=== PATIENT | female | born 1975 | race Caucasian/White ===

== ENCOUNTER 2017-06-26 16:03 | Observation (INO) | payer OTHER ==
--- NOTE | 2017-06-26 16:15 | CPEKG ---
Heart Rate: 84 RR Interval: 714 P-R Interval: 148 QRSD Interval: 100 QT Interval: 380 QTC Interval: 450 P [place]: 39 QRS [place]: -14 T Wave [place]: 24 EKG Severity - NORMAL ECG - EKG Impression: SINUS RHYTHM Electronically Signed By: Cecil Reese 26-Jun-2017 22:28:44
--- NOTE | 2017-06-26 16:15 | CPEKG ---
Heart Rate: 84 RR Interval: 714 P-R Interval: 148 QRSD Interval: 100 QT Interval: 380 QTC Interval: 450 P [place]: 39 QRS [place]: -14 T Wave [place]: 24 EKG Severity - NORMAL ECG - EKG Impression: SINUS RHYTHM Electronically Signed By: Cecil Reese 26-Jun-2017 22:28:44
[2017-06-26 16:39] LABS: PLATELET COUNT 334 10^3/uL (150-400)
--- NOTE | 2017-06-26 16:59 | EDPHY ---
H & P Stated Complaint: Pt. states aprox 1300 today left ant cp with dizziness/ lightheadedness Time Seen by Provider: 06/26/17 16:39 HPI/ROS: Chief Complaint: Chest pain, lightheaded HPI: 41-year-old woman was at work in office today when she had onset of some lightheadedness and then developed some discomfort in the left side of her upper chest. At worst was a 4/10. Now 2/10. Symptoms began about 1 this afternoon. No recent illness but multiple coworkers have had upper respiratory type symptoms. She has not had any cough or shortness of breath. No palpitations. No leg pain or swelling. No periods of immobility. No family history of coronary artery disease or sudden cardiac . ROS: 10 point Review of Systems is negative except as noted in the HPI. PMH: Denies Social History: No smoking, occasional alcohol, no recreational drug use Family History: No family history of coronary artery disease or sudden cardiac . Mother diabetes, father of complications from Alzheimer's. Physical Exam: Gen: Awake, Alert, No Distress, morbidly obese HEENT: Nose: no rhinorrhea Eyes: PERRLA, EOMI Mouth: Moist mucosa Neck: Supple, no JVD Chest: nontender, lungs clear to auscultation Heart: S1, S2 normal, she has a 3/6 systolic murmur Abd: Soft, non-tender, no guarding Back: no CVA tenderness, no midline tenderness Ext: no edema, non-tender Skin: no rash Neuro: CN II-XII intact, Sensation grossly intact, Strength 5/5 in bilateral upper and lower extremities - Personal History LMP (Females 10-55): Extended Cycle BCP/Inj - Medical/Surgical History Hx Asthma: Yes Hx Chronic Respiratory Disease: No Hx Diabetes: No Hx Cardiac Disease: No Hx Renal Disease: No Hx Cirrhosis: No Hx Alcoholism: No Hx HIV/AIDS: No Hx Splenectomy or Spleen Trauma: No Other PMH: Med hx-insomnia, chronic back pain. Surg-c-sect,nu - Social History Smoking Status: Current some day smoker Constitutional: Initial Vital Signs Temperature (C) 36.6 C 06/26/17 16:13 Heart Rate 88 06/26/17 16:13 Respiratory Rate 17 06/26/17 16:13 Blood Pressure 172/121 H 06/26/17 16:13 O2 Sat (%) 98 06/26/17 16:13 O2 Delivery Mode Room Air Allergies/Adverse Reactions: No Known Allergies Allergy (Verified 06/26/17 16:12) Home Medications: Medication Instructions Recorded Albuterol Hfa Anes Only 06/26/17 Pantoprazole Sodium 06/26/17 traZODone 06/26/17 Medical Decision Making - Diagnostics EKG Interpretation: ECG time 4:13 p.m., sinus rhythm with a rate of 84, normal axis, normal intervals, no acute ST or T-wave changes. Impression: Normal ECG. Imaging Results: Imaging Impressions Chest X-Ray 06/26/17 16:40 Impression: Pulmonary venous hypertension. Might this patient have papillary muscle dysfunction , mitral valve disease or lower lobe emboli? Results discussed with Dr. Reese and at 5:10 PM Imaging: Discussed imaging studies w/ yardage caller Radiologist ED Course/Re-evaluation: 41-year-old woman presenting with lightheadedness chest discomfort since 1 o' clock. She has normal ECG. Her PERC score is 0. She has no risk factors for coronary artery disease or PE. Will obtain chest x-ray, CBC and chemistry and troponin and reassess. Patient does have a murmur. Chest x-ray results discussed with Dr. Soriano. Patient has findings suggestive of pulmonary hypertension. She does have a murmur. Awaiting troponin. D-dimer has been ordered. I have discussed with Dr. Teresa mathew, hospitalist. She will accept the patient transfer to [facility] to a PCU bed for further evaluation. Patient will certainly need an echocardiogram. Will wait D-dimer here. If it is positive will perform CT scanning of her chest prior to transfer. - Data Points Laboratory Results: Laboratory Results 06/26/17 Unknown 06/26/17 Unknown 06/26/17 06/26/17 06/26/17 Unknown Unknown Unknown WBC 10.29 10^3/uL H 10^3/uL (3.80-9.50) RBC 5.05 10^6/uL 10^6/uL (4.18-5.33) Hgb 12.9 g/dL g/dL (12.6-16.3) Hct 40.0 % % (38.0-47.0) MCV 79.2 fL L fL (81.5-99.8) MCH 25.5 pg L pg (27.9-34.1) MCHC 32.3 g/dL L g/dL (32.4-36.7) RDW 14.3 % % (11.5-15.2) Plt Count 334 10^3/uL 10^3/uL (150-400) MPV 9.2 fL fL (8.7-11.7) Neut % (Auto) 43.4 % % (39.3-74.2) Lymph % (Auto) 43.1 % % (15.0-45.0) [place] % (Auto) 8.0 % % (4.5-13.0) Eos % (Auto) 4.6 % % (0.6-7.6) Baso % (Auto) 0.4 % % (0.3-1.7) Nucleat RBC Rel Count 0.0 % % (0.0-0.2) Absolute Neuts (auto) 4.48 10^3/uL 10^3/uL (1.70-6.50) Absolute Lymphs (auto) 4.43 10^3/uL H 10^3/uL (1.00-3.00) Absolute Monos (auto) 0.82 10^3/uL H 10^3/uL (0.30-0.80) Absolute Eos (auto) 0.47 10^3/uL H 10^3/uL (0.03-0.40) Absolute Basos (auto) 0.04 10^3/uL 10^3/uL (0.02-0.10) Absolute Nucleated RBC 0.00 10^3/uL 10^3/uL (0-0.01) Immature Gran % 0.5 % % (0.0-1.1) Immature Gran # 0.05 10^3/uL 10^3/uL (0.00-0.10) D-Dimer < 0.27 ug/mLFEU ug/mLFEU (0.00-0.50) Sodium 138 mEq/L mEq/L (134-144) Potassium 4.2 mEq/L mEq/L (3.5-5.2) Chloride 105 mEq/L mEq/L (97-110) Carbon Dioxide 23 mEq/l mEq/l (22-31) Anion Gap 10 mEq/L mEq/L (8-16) BUN 9 mg/dL mg/dL (7-23) Creatinine 0.5 mg/dL L mg/dL (0.6-1.0) Estimated GFR > 60 Glucose 95 mg/dL mg/dL (70-100) Calcium 9.3 mg/dL mg/dL (8.5-10.4) Troponin I 06/26/17 Unknown WBC RBC Hgb Hct MCV MCH MCHC RDW Plt Count MPV Neut % (Auto) Lymph % (Auto) [place] % (Auto) Eos % (Auto) Baso % (Auto) Nucleat RBC Rel Count Absolute Neuts (auto) Absolute Lymphs (auto) Absolute Monos (auto) Absolute Eos (auto) Absolute Basos (auto) Absolute Nucleated RBC Immature Gran % Immature Gran # D-Dimer Sodium Potassium Chloride Carbon Dioxide Anion Gap BUN Creatinine Estimated GFR Glucose Calcium Troponin I Pending Departure - Departure Disposition: [facility] Inpatient Acute Clinical Impression: Chest pain Condition: Fair Referrals: XIOMY MEJIA [Primary Care Provider] - As per Instructions
--- NOTE | 2017-06-26 20:56 | PDGENHP ---
History and Physical - Chief Complaint chest pain - History of Present Illness 41 yo obese female with h/o ETHEL developed dizziness, lightheadedness after lunch today while in a meeting at work. She endorsed chest tightness and pressure with this. She also c/o interscapular pain, radiating from her chest. Denies pre-syncope symptoms at this time. She continues to feel a tight pressure in her chest, but her back is hurting more. She denies associated nausea, diaphoresis, or SOB. No N/V/D, abdominal pain or urinary symptoms. She endorses sick contacts in some co-workers, who have URI's. She denies cough , sore throat, congestion or fever. In the ED, she had a non-ischemic EKG and a negative troponin at [facility] [place] [facility]. She is transferred for admission to [facility] for further evaluation. History Information - Allergies/Home Medication List Allergies/Adverse Reactions: No Known Allergies Allergy (Verified 06/26/17 16:12) Home Medications: Pantoprazole Sodium [Protonix 40mg (*)] 40 mg PO DAILY 06/26/17 [Last Taken 10/11] traZODone [traZODONE 50MG (*)] 50 mg PO HS PRN 06/26/17 [Last Taken 06/23/17] I have personally reviewed and updated: family history, medical history, social history, surgical history - Past Medical History Additional medical history: severe obesity (BMI 60), ETHEL on CPAP - Social History Smoking Status: Current some day smoker Review of Systems Review of Systems: ROS: 10pt was reviewed & negative except for what was stated in HPI & below Physical Exam Physical Exam: Temp Pulse Resp BP Pulse Ox 36.9 C 80 18 138/80 H 96 06/26/17 19:29 06/26/17 19:29 06/26/17 19:29 06/26/17 19:29 06/26/17 19:29 O2 (L/minute) 2 Constitutional: no apparent distress, obese Eyes: PERRL Ears, Nose, Mouth, Throat: moist mucous membranes Cardiovascular: regular rate and rhythym, systolic murmur Respiratory: no respiratory distress, clear to auscultation Gastrointestinal: normoactive bowel sounds, soft, non-tender abdomen Skin: warm Musculoskeletal: full muscle strength Neurologic: AAOx3 Psychiatric: interacting appropriately Lab Data & Imaging Review 06/26/17 Unknown 06/26/17 Unknown WBC 10.29 10^3/uL (3.80-9.50) H 06/26/17 Unknown RBC 5.05 10^6/uL (4.18-5.33) 06/26/17 Unknown Hgb 12.9 g/dL (12.6-16.3) 06/26/17 Unknown Hct 40.0 % (38.0-47.0) 06/26/17 Unknown MCV 79.2 fL (81.5-99.8) L 06/26/17 Unknown MCH 25.5 pg (27.9-34.1) L 06/26/17 Unknown MCHC 32.3 g/dL (32.4-36.7) L 06/26/17 Unknown RDW 14.3 % (11.5-15.2) 06/26/17 Unknown Plt Count 334 10^3/uL (150-400) 06/26/17 Unknown MPV 9.2 fL (8.7-11.7) 06/26/17 Unknown Neut % (Auto) 43.4 % (39.3-74.2) 06/26/17 Unknown Lymph % (Auto) 43.1 % (15.0-45.0) 06/26/17 Unknown [place] % (Auto) 8.0 % (4.5-13.0) 06/26/17 Unknown Eos % (Auto) 4.6 % (0.6-7.6) 06/26/17 Unknown Baso % (Auto) 0.4 % (0.3-1.7) 06/26/17 Unknown Nucleat RBC Rel Count 0.0 % (0.0-0.2) 06/26/17 Unknown Absolute Neuts (auto) 4.48 10^3/uL (1.70-6.50) 06/26/17 Unknown Absolute Lymphs (auto) 4.43 10^3/uL (1.00-3.00) H 06/26/17 Unknown Absolute Monos (auto) 0.82 10^3/uL (0.30-0.80) H 06/26/17 Unknown Absolute Eos (auto) 0.47 10^3/uL (0.03-0.40) H 06/26/17 Unknown Absolute Basos (auto) 0.04 10^3/uL (0.02-0.10) 06/26/17 Unknown Absolute Nucleated RBC 0.00 10^3/uL (0-0.01) 06/26/17 Unknown Immature Gran % 0.5 % (0.0-1.1) 06/26/17 Unknown Immature Gran # 0.05 10^3/uL (0.00-0.10) 06/26/17 Unknown D-Dimer < 0.27 ug/mLFEU (0.00-0.50) 06/26/17 Unknown Sodium 138 mEq/L (134-144) 06/26/17 Unknown Potassium 4.2 mEq/L (3.5-5.2) 06/26/17 Unknown Chloride 105 mEq/L (97-110) 06/26/17 Unknown Carbon Dioxide 23 mEq/l (22-31) 06/26/17 Unknown Anion Gap 10 mEq/L (8-16) 06/26/17 Unknown BUN 9 mg/dL (7-23) 06/26/17 Unknown Creatinine 0.5 mg/dL (0.6-1.0) L 06/26/17 Unknown Estimated GFR > 60 06/26/17 Unknown Glucose 95 mg/dL (70-100) 06/26/17 Unknown Calcium 9.3 mg/dL (8.5-10.4) 06/26/17 Unknown Troponin I < 0.012 ng/mL (0.000-0.034) 06/26/17 Unknown Visualized and Interpreted Chest x-ray results: Yes Chest X-Ray results: no infiltrate Visualized and Interpreted EKG results: Yes EKG Interpretation: Positive for: normal sinsus rhythm Assessment & Plan Assessment: Chest pain (Acute) - EKG non-ischemic, initial trop neg. CV risk factors: obesity, ETHEL. D dimer negative. Given the radiation of her pain to her back and persistent symptoms, should r/o dissection. -CTA to r/o aortic dissection -trend troponin -check lipid status -repeat EKG now to assess for evolutionary changes -If CTA neg, will give ASA -trial NTG, prn morphine for pain -stress test in am if above w/u negative Dizziness / pre-syncope - ?viral syndrome. -check echo to assess heart valves and LV function -send respiratory pathogen panel ETHEL - home CPAP Obesity Full code Dispo - obs
--- NOTE | 2017-06-26 21:11 | CPEKG ---
Heart Rate: 79 RR Interval: 759 P-R Interval: 148 QRSD Interval: 98 QT Interval: 400 QTC Interval: 459 P Protection: 18 QRS Protection: -14 T Wave Protection: 10 EKG Severity - OTHERWISE NORMAL ECG - EKG Impression: SINUS RHYTHM EKG Impression: VENTRICULAR PREMATURE COMPLEX Electronically Signed By: Bola Pritchett 27-Jun-2017 10:25:40
[2017-06-26] MEDS ORDERED: ONDANSETRON 4 MG/2 ML VIAL IVP PRN (21:16)
[2017-06-26] MEDS ORDERED: ONDANSETRON DISINTEGRATING 4 MG TAB PO PRN (21:16)
[2017-06-26] MEDS ORDERED: ALBUTEROL 3 ML DEYVIAL IH PRN (21:16)
[2017-06-26] MEDS ORDERED: ACETAMINOPHEN 325 MG TAB PO PRN (21:16)
[2017-06-26] MEDS ORDERED: IOPAMIDOL (ISOVUE 370) 100 ML BTL IV ONE (21:19)
[2017-06-26] MEDS ORDERED: traZODone 50 MG TAB PO PRN (21:20)
[2017-06-26] MEDS ORDERED: NITROGLYCERIN 0.4 MG BTL SL PRN (21:22)
[2017-06-26] MEDS ORDERED: ASPIRIN 325 MG TAB PO ONE (23:55)
[2017-06-27] MEDS: HYDROCODONE/APAP 5/325 TAB PO PRN ×2 (01:48→09:32)
[2017-06-27 04:57] LABS: PLATELET COUNT 275 10^3/uL (150-400)
[2017-06-27] MEDS ORDERED: PANTOPRAZOLE SODIUM 40 MG TAB PO SCH (09:00)
--- NOTE | 2017-06-27 09:49 | ASMTCASEMG ---
Living Arrangements What is your living Answers: Alone arrangement? Who do you live with? Type Of Residence What kind of residence do Answers: House you live in? Discharge Plan Comments Coordination Status Comments Notes: Pt is a 41 y/o female admitted w/ chest pain. No therapies ordered at this time. Anticipates that pt will d/c independent when medically stable. CM available for d/c needs. Date Signed: 06/27/2017 09:48 AM Electronically Signed By:DILIA Sesay
--- NOTE | 2017-06-27 09:58 | ECHO ---
[email or web address] [address] [address] Main: [phone] Fax: Transthoracic Echocardiogram Name: THIERNO LEE MR#: [id number] Study Date: 06/27/2017 Study Time: 08:47 AM Date of : 1975 Age: 41 year(s) Height: 162.6 cm (64 in.) Weight: 165.56 kg (365 lb.) BSA: 2.53 m2 Gender: Female Examination: Echo Indication: pre-syncope; murmur Image Quality: Technically Difficult Contrast: Requested by: Teresa Avery BP: 124 mmHg/74 mmHg Heart Rate: 70 bpm Rhythm: Normal sinus rhythm Indication: pre-syncope; murmur Procedure Staff Measurement Operator: Negrita Haley Physician: Avery Cheek Requesting Provider: Measurements: Chambers Valvular Assessment AV/MV Valvular Assessment TV/PV Normal Normal Normal Name Value Range Name Value Range Name Value Range Ao Heidi (MM): 2.8 cm (2.2 cm-3.7 AV Vmax: 1.90 m/s (1 m/s-1.7 PV Vmax: 1.04 m/s (0.6 m/s-0.9 cm) m/s) m/s) IVSd (2D): 0.8 cm (0.6 cm-1.1 AV maxP mmHg ( - ) PV PGmax: 4 mmHg ( - ) cm) LVOT Vmax: 1.34 m/s (0.7 m/s-1.1 LVDd (2D): 4.7 cm (3.9 cm-5.3 m/s) cm) MV E Vmax: 1.26 m/s ( - ) LVDs (2D): 3.1 cm (2.1 cm-4 MV A Vmax: 0.64 m/s ( - ) cm) MV E/A: 1.97 ( - ) LVPWd (2D): 1.3 cm ( - ) LVEF (BP): 57 % (>=55 %) RVDd(2D): 3.0 cm (1.9 cm-3.8 cmmm) Continued Measurements: Chambers Valvular Assessment AV/MV Name Value Name Value LADs Lon.6 cm MV DecTime: 201 m/s LA Area: 19.9 cm2 MV E' Septal: 0.09 m/s LA Volume: 52 ml MV E/E' Septal: 13.60 LA Volume Index: 20.6 ml/m2 MV E/E' Lateral: 11.10 RA Area: 11.5 cm2 Additional Vessels Patient: THIERNO LEE Study Date: 06/27/2017 Page 1 of 2 08:47 AM Name Value Ao Ascendin.6 cm Findings: Left Ventricle: Normal size left ventricle. No LV hypertrophy. Normal global systolic LV function. EF is 57 %. Normal diastolic LV function. Cannot rule out wall motion abnormalities due to poor endocardial definition. Right Ventricle: Normal size right ventricle. Normal RV function. Left Atrium: The left atrium is normal in size. Right Atrium: The right atrium is normal in size. Mitral Valve: The mitral valve is normal in appearance and function. There is no mitral valve regurgitation. Aortic Valve: Aortic valve is not well visualized. There is no aortic valve regurgitation. No aortic valve stenosis is present. Tricuspid Valve: The tricuspid valve is normal in appearance and function. There is no tricuspid valve regurgitation. Pulmonary artery pressure is not obtained due to inadequate TR jet. Pulmonic Valve: The pulmonic valve is normal in appearance and function. Aorta: The aorta is normal. Normal size aortic root measuring 2.8 cm. Normal size ascending aorta measuring 2.6 cm. IVC: The IVC is moderately dilated. Pericardium: No pericardial effusion. (No Signature Object) Patient: THIERNO LEE Study Date: 06/27/2017 Page 2 of 2 08:47 AM [id number]
--- NOTE | 2017-06-27 09:58 | ECHO ---
[email or web address] [address] [address] Main: [phone] Fax: Transthoracic Echocardiogram Name: THIERNO LEE MR#: [id number] Study Date: 06/27/2017 Study Time: 08:47 AM Date of : 1975 Age: 41 year(s) Height: 162.6 cm (64 in.) Weight: 165.56 kg (365 lb.) BSA: 2.53 m2 Gender: Female Examination: Echo Indication: pre-syncope; murmur Image Quality: Technically Difficult Contrast: Requested by: Teresa Avery BP: 124 mmHg/74 mmHg Heart Rate: 70 bpm Rhythm: Normal sinus rhythm Indication: pre-syncope; murmur Procedure Staff Silica Mixer Operator: Negrita Haley Physician: Avery Cheek Requesting Provider: Measurements: Chambers Valvular Assessment AV/MV Valvular Assessment TV/PV Normal Normal Normal Name Value Range Name Value Range Name Value Range Ao Heidi (MM): 2.8 cm (2.2 cm-3.7 AV Vmax: 1.90 m/s (1 m/s-1.7 PV Vmax: 1.04 m/s (0.6 m/s-0.9 cm) m/s) m/s) IVSd (2D): 0.8 cm (0.6 cm-1.1 AV maxP mmHg ( - ) PV PGmax: 4 mmHg ( - ) cm) LVOT Vmax: 1.34 m/s (0.7 m/s-1.1 LVDd (2D): 4.7 cm (3.9 cm-5.3 m/s) cm) MV E Vmax: 1.26 m/s ( - ) LVDs (2D): 3.1 cm (2.1 cm-4 MV A Vmax: 0.64 m/s ( - ) cm) MV E/A: 1.97 ( - ) LVPWd (2D): 1.3 cm ( - ) LVEF (BP): 57 % (>=55 %) RVDd(2D): 3.0 cm (1.9 cm-3.8 cmmm) Continued Measurements: Chambers Valvular Assessment AV/MV Name Value Name Value LADs Lon.6 cm MV DecTime: 201 m/s LA Area: 19.9 cm2 MV E' Septal: 0.09 m/s LA Volume: 52 ml MV E/E' Septal: 13.60 LA Volume Index: 20.6 ml/m2 MV E/E' Lateral: 11.10 RA Area: 11.5 cm2 Additional Vessels Patient: THIERNO LEE Study Date: 06/27/2017 Page 1 of 2 08:47 AM Name Value Ao Ascendin.6 cm Findings: Left Ventricle: Normal size left ventricle. No LV hypertrophy. Normal global systolic LV function. EF is 57 %. Normal diastolic LV function. Cannot rule out wall motion abnormalities due to poor endocardial definition. Right Ventricle: Normal size right ventricle. Normal RV function. Left Atrium: The left atrium is normal in size. Right Atrium: The right atrium is normal in size. Mitral Valve: The mitral valve is normal in appearance and function. There is no mitral valve regurgitation. Aortic Valve: Aortic valve is not well visualized. There is no aortic valve regurgitation. No aortic valve stenosis is present. Tricuspid Valve: The tricuspid valve is normal in appearance and function. There is no tricuspid valve regurgitation. Pulmonary artery pressure is not obtained due to inadequate TR jet. Pulmonic Valve: The pulmonic valve is normal in appearance and function. Aorta: The aorta is normal. Normal size aortic root measuring 2.8 cm. Normal size ascending aorta measuring 2.6 cm. IVC: The IVC is moderately dilated. Pericardium: No pericardial effusion. (No Signature Object) Patient: THIERNO LEE Study Date: 06/27/2017 Page 2 of 2 08:47 AM [id number]
--- NOTE | 2017-06-27 09:58 | ECHO ---
[email or web address] [address] [address] Main: [phone] Fax: Transthoracic Echocardiogram Name: THIERNO LEE MR#: [id number] Study Date: 06/27/2017 Study Time: 08:47 AM Date of : 1975 Age: 41 year(s) Height: 162.6 cm (64 in.) Weight: 165.56 kg (365 lb.) BSA: 2.53 m2 Gender: Female Examination: Echo Indication: pre-syncope; murmur Image Quality: Technically Difficult Contrast: Requested by: Teresa Avery BP: 124 mmHg/74 mmHg Heart Rate: 70 bpm Rhythm: Normal sinus rhythm Indication: pre-syncope; murmur Procedure Staff Hadoop Infrastructure Architect: Negrita Haley Physician: Avery Cheek Requesting Provider: Measurements: Chambers Valvular Assessment AV/MV Valvular Assessment TV/PV Normal Normal Normal Name Value Range Name Value Range Name Value Range Ao Heidi (MM): 2.8 cm (2.2 cm-3.7 AV Vmax: 1.90 m/s (1 m/s-1.7 PV Vmax: 1.04 m/s (0.6 m/s-0.9 cm) m/s) m/s) IVSd (2D): 0.8 cm (0.6 cm-1.1 AV maxP mmHg ( - ) PV PGmax: 4 mmHg ( - ) cm) LVOT Vmax: 1.34 m/s (0.7 m/s-1.1 LVDd (2D): 4.7 cm (3.9 cm-5.3 m/s) cm) MV E Vmax: 1.26 m/s ( - ) LVDs (2D): 3.1 cm (2.1 cm-4 MV A Vmax: 0.64 m/s ( - ) cm) MV E/A: 1.97 ( - ) LVPWd (2D): 1.3 cm ( - ) LVEF (BP): 57 % (>=55 %) RVDd(2D): 3.0 cm (1.9 cm-3.8 cmmm) Continued Measurements: Chambers Valvular Assessment AV/MV Name Value Name Value LADs Lon.6 cm MV DecTime: 201 m/s LA Area: 19.9 cm2 MV E' Septal: 0.09 m/s LA Volume: 52 ml MV E/E' Septal: 13.60 LA Volume Index: 20.6 ml/m2 MV E/E' Lateral: 11.10 RA Area: 11.5 cm2 Additional Vessels Patient: THIERNO LEE Study Date: 06/27/2017 Page 1 of 2 08:47 AM Name Value Ao Ascendin.6 cm Findings: Left Ventricle: Normal size left ventricle. No LV hypertrophy. Normal global systolic LV function. EF is 57 %. Normal diastolic LV function. Cannot rule out wall motion abnormalities due to poor endocardial definition. Right Ventricle: Normal size right ventricle. Normal RV function. Left Atrium: The left atrium is normal in size. Right Atrium: The right atrium is normal in size. Mitral Valve: The mitral valve is normal in appearance and function. There is no mitral valve regurgitation. Aortic Valve: Aortic valve is not well visualized. There is no aortic valve regurgitation. No aortic valve stenosis is present. Tricuspid Valve: The tricuspid valve is normal in appearance and function. There is no tricuspid valve regurgitation. Pulmonary artery pressure is not obtained due to inadequate TR jet. Pulmonic Valve: The pulmonic valve is normal in appearance and function. Aorta: The aorta is normal. Normal size aortic root measuring 2.8 cm. Normal size ascending aorta measuring 2.6 cm. IVC: The IVC is moderately dilated. Pericardium: No pericardial effusion. (No Signature Object) Patient: THIERNO LEE Study Date: 06/27/2017 Page 2 of 2 08:47 AM [id number]
[2017-06-27] MEDS ORDERED: FLU VACC QS 2017-18 (3YR+)/PF 0.5 ML SYR (FLUARIX QUAD) IM ONE (09:59)
[2017-06-27 11:10] VITALS: BP 133/87; PULSE 70; RESP 17; TEMP 97.5; O2SAT 92
--- NOTE | 2017-06-27 13:08 | GDS ---
[f rep st] DISCHARGE SUMMARY DISCHARGE DIAGNOSIS: Noncardiac chest pain. HISTORY OF PRESENT ILLNESS: The patient is a pleasant 41-year-old female, with past medical history of esophageal reflux, who was brought to the [facility] Emergency room after experien cing chest pain and dizziness while at work. She was apparently at a meeting when these symptoms dev eloped rather abruptly. Upon arrival to the emergency room, her initial ECG showed normal sinus rhyt hm. Her initial troponin was also negative. She was admitted overnight for observation and her trop onins were all negative. She additionally had a CT scan of her chest, angiogram, which did not show any pulmonary embolism, the lungs were clear, there was no dissection seen either. An echocardiogram was also performed, which showed normal left ventricle with estimated ejection fraction of 57%, no d iastolic dysfunction was noted, there were no concerning valve abnormalities, no pericardial effusion was seen either. She did say that her chest pain does seem to get worse when she lays down flat, it gets better when she sits upright, bringing to question the possibility of pericarditis. She has no t had any recent fever or chills. She denies having any recent illnesses either, so it does not enti rely fit with the diagnosis. We did discuss that a trial of scheduled anti-inflammatories may be eddy sonable to see if it has any effect on her chest symptoms. We also discussed the possibility of acid reflux playing a role. She does take pantoprazole and she states good compliance to this on a daily basis. We discussed that she could try adding Zantac at night along with this for a brief time, to see if it made any difference in her symptoms. It sounds like she does take NSAIDs on a fairly regul ar basis for joint pains, and I did discuss with her too about the possibility of stomach ulcer, and advised her to monitor her stools for any black, loose, tarry stools or outright blood. I discussed with her that if these things develop, that she should return to the emergency room. She, however, s tates that she has been more constipated of recent, and there are no other symptoms concerning for st omach ulcer. She was comfortable with the plan to discharge home today with plan for short-term foll ow up with her primary care provider for reassessment after a short trial of scheduled NSAIDs. PHYSICAL EXAMINATION: VITAL SIGNS: On day of discharge, temperature 36.4, blood pressure 133/87, he art rate 70, respirations 17, saturating 92% on room air. GENERAL: Patient resting comfortably in bed. Awake, alert, in no acute distress. HEART: Regular. No murmurs appreciated. LUNGS: Normal respiratory effort. Clear on auscultation. ABDOMEN: Obese, nontender. : No Murray catheter in place. EXTREMITIES: No significant pitting edema. MUSCULOSKELETAL: No calf pain with palpation. NOTABLE STUDIES: As detailed in the HPI. DISCHARGE MEDICATIONS: 1. Hydrocodone acetaminophen 5/325 1 to 2 tabs every 4 hours as needed for more severe chest or back pain, 15 tablets dispensed. 2. Pantoprazole 40 mg daily. 3. Trazodone 50 mg nightly as needed for insomnia. 4. Aleve or Advil, she states that she alternates both at home. We discussed for pericarditis we wo uld usually use an Advil dose of 400 to 600 mg 3 times a day. She could also use Aleve 1 to 2 tabs t wice a day. DISCHARGE INSTRUCTIONS: I recommend a followup visit with Dr. Mary Go in 1 to 2 weeks' time f or reassessment, or I would advise her to return to the emergency room should she develop any symptom s concerning for a possible gastric ulcer that we discussed. Thirty-five minutes of time dedicated to discharge efforts. Copy requested to: Mary Go MD /[id number]/[id number]
== END 2017-06-27 13:38 | disposition home or self-care (01) ==
LOC: CED 16:03 → CEDHOLD 17:25 → INTOOBSV 17:25 → F2W 19:07
PROVIDERS: ADMIT Hospitalist; ATTEND Hospitalist
DX: R07.89 Other chest pain (principal); R42 Dizziness and giddiness; Z23 Encounter for immunization; G47.33 Obstructive sleep apnea (adult) (pediatric); E66.9 Obesity, unspecified; Z68.44 Body mass index [BMI] 60.0-69.9, adult; F17.210 Nicotine dependence, cigarettes, uncomplicated
CPT/HCPCS: 71020; 71275; 90471; 93005; 93306; 99285; G0378; 80048-PO; 84484-PO; 85025-PO; 85378-PO; G0008; Q9967